=== PATIENT | male | born 1995 | race Caucasian/White ===

== ENCOUNTER 2017-08-08 17:44 | Emergency (ER) | payer SELFPAY ==
[~2017-08-08] VITALS: Ht 175.3 cm; Wt 86.7 kg
[2017-08-08] MEDS ORDERED: MOTRIN800 MG PO (18:38)
[2017-08-08] MEDS ORDERED: KEFLEX500 MG PO (18:38)
[2017-08-08 19:03] VITALS: BP 136/68
== END 2017-08-08 19:04 | disposition home or self-care (01) ==
LOC: EME 17:44
DX: L60.0 Ingrowing nail (principal); L03.032 Cellulitis of left toe
CPT/HCPCS: 99281; 99284